=== PATIENT | male | born 1970 | race American Indian/Alaskan Native ===

== ENCOUNTER 2024-07-04 21:26 | Emergency (ER) | payer OTHER, SELFPAY ==
[2024-07-04 21:29] VITALS: BP 112/72
[2024-07-04 21:51] LABS: Hemoglobin 12.1 g/dL (13.0-18.0); Mean Corp Hgb Conc. 31.8 g/dL (33.0-37.0); Mean Corpuscular Hgb 26.9 pg (27.0-31.0); Mean Corpuscular Volume 84.6 fL (80.0-94.0); Mean Platelet Volume 8.8 fL (7.4-10.4); Platelet Count 258 10^3/uL (130-400); Red Blood Cell Count 4.49 10^6/uL (4.70-6.10); Red Cell Dist. Width 13.8 % (11.5-14.5); White Blood Cell Count 9.5 10^3/uL (4.8-10.8)
[2024-07-04 22:05] LABS: ALT (SGPT) 23 U/L (0-50); AST (SGOT) 23 U/L (17-59); Albumin 4.1 g/dl (3.5-5.0); Alkaline Phosphatase 74 U/L (38-126); Blood Urea Nitrogen 10 mg/dl (9-20); Calcium 8.5 mg/dl (8.4-10.2); Carbon Dioxide 28 mmol/L (22-30); Chloride 106 mmol/L (98-107); Glucose 119 mg/dl (70-99); Potassium 3.9 mmol/L (3.5-5.1); Sodium 141 mmol/L (135-145); Total Bilirubin 0.2 mg/dl (0.2-1.3); Total Protein 6.9 g/dl (6.3-8.2); eGFR > 60.00
[2024-07-04 22:11] LABS: Troponin I < 0.012 ng/ml
[2024-07-04 22:32] LABS: % Basophils 0.5 % (0-2); % Eosinophils 3.2 % (0-6); % Immature Granulocytes 0.2 % (0-0.5); % Lymphocytes 52.1 % (20.5-51.1); % Monocytes 6.8 % (1.7-9.3); % Neutrophils 37.2 % (42.2-75.2); Absolute Basophils 0.1 10^3/uL (0-0.2); Absolute Eosinophils 0.3 10^3/uL (0-0.7); Absolute Monocytes 0.7 10^3/uL (0.1-0.6); Absolute Neutrophils 3.5 10^3/uL (1.4-6.5); Nucleated Red Blood Cells % 0 % (-)
[2024-07-04 23:54] VITALS: BP 106/70
[2024-07-04 23:55] VITALS: BP 106/70
[2024-07-04 23:57] VITALS: BMI 26.4
[2024-07-05] VITALS: BP 101/73
--- NOTE | 2024-07-05 00:25 | ED.GENMED ---
History of Present Illness
General
Chief Complaint: Cardiac Symptoms
Source: patient
Exam Limitations: none
Time Seen by Provider: 07/04/24 23:54
History of Present Illness
History of Present Illness:
This is a 53 year old male that comes in with c/o chest pain. States that he had pain in the upper jaw area today with back pain at the left shoulder. States that he then had chest pain. States that this has happened a couple of times during the
day. States that it only last about 1min or less. Denies any pain at this time. Denies any fever, chills, SOB, abd pain, nausea, vomiting, diarrhea, headache, dizziness, urinary burning.
Past History
Past History
ED Past Medical History: Asthma, Cancer (Ampullary Cancer) and Hypothyroidism
ED Past Surgical History: Cholecystectomy and Other (whipple procedure, Hernia, Deviated septum)
Social History
Tobacco: Non-smoker
Alcohol: None
Personal:
Living: with family
Review of Systems
Review of Systems
All Other Systems: ROS reviewed and negative except as documented in HPI and ROS
Constitutional: Reports no symptoms; Denies fever or chills
EENT: Reports no symptoms
Respiratory: Reports no symptoms; Denies cough or trouble breathing
Cardiac: Reports chest pain
ABD/GI: Reports no symptoms; Denies abdominal pain, nausea, vomiting or diarrhea
: Reports no symptoms; Denies dysuria, frequency or urgency
Musculoskeletal: Reports back pain (Left upper back pain)
Skin: Reports no symptoms
Neurological: Reports no symptoms; Denies dizzy or headache
Psychiatric: Reports no symptoms
Phy Exam
General Physical Exam
General Presentation: well appearing and no apparent distress
General age: appears stated age
General Skin: warm and dry
General Habitus: normal
General Mental: alert
General Hydration: appears well hydrated
ENT Exam
ENT Exam: TM's normal, pharynx normal and neck supple
Eye Exam
Eye Exam: EOMI
Cardiovascular Exam
Cardiovascular Exam: regular rate/rhythm, no edema, no murmur and normal peripheral pulses
Pulmonary Exam
Pulmonary Exam: lungs clear, no respiratory distress, no rales, chest non tender, no crackles, no rhonchi, no wheezing and no cough
Gastrointestinal Exam
Gastrointestinal Exam: normal bowel sounds, non tender, soft, no organomegaly, no pulsatile mass and non distended
Musculoskeletal Exam
Musculoskeletal Exam: full ROM and no edema
Skin Exam
Skin Exam: normal color, warm/dry, no rash and no petechia
Psychiatric Exam
Psychiatric Exam: normal mood/affect
Course
Orders/Labs/Results
Orders:
Orders
07/04/24 21:27
ECG [Electrocardiogram (*1)] Urgent
Reason for Study: Other
Other Reason for Exam: jaw and left shoulder pain
07/04/24 21:28
EKG- Treatment ONCE
07/04/24 21:40
Complete Blood Count/With Diff Urgent
Comprehensive Metabolic Panel Urgent
Troponin I Urgent
07/05/24 00:24
Electrocardiogram (*1) Urgent
Reason for Study: Chest Pain
Other Reason for Exam: Repeat with Troponin
EKG- Treatment ONCE
CR Chest - 2 Views Urgent
Comment:
Reason For Exam: Chest pain
07/05/24 00:39
D-Dimer Urgent
Troponin I Urgent
Abnormal Lab Results
07/04/24
21:40
RBC 4.49 L 10^6/uL
(4.70-6.10)
Hgb 12.1 L g/dL
(13.0-18.0)
Hct 38.0 L %
(39.0-52.0)
MCH 26.9 L pg
(27.0-31.0)
MCHC 31.8 L g/dL
(33.0-37.0)
Absolute Lymphs (auto) 5.0 H 10^3/uL
(1.2-3.4)
Absolute Monos (auto) 0.7 H 10^3/uL
(0.1-0.6)
Neutrophils % 37.2 L %
(42.2-75.2)
Lymphocytes % 52.1 H %
(20.5-51.1)
Glucose 119 H mg/dl
(70-99)
07/04/24 21:40
07/04/24 21:40
H/H slightly low. Glucose nonfasting. Troponin <0.012
Second Troponin <0.012, D-dimer 0.31
Vital Signs
Initial and Last Documented VS:
Initial Vital Signs
Temp Pulse Resp BP Pulse Ox
98.0 F 66 18 112/72 100
07/04/24 21:29 07/04/24 21:29 07/04/24 21:29 07/04/24 21:29 07/04/24 21:29
Last Documented Vital Signs
Temp Pulse Resp BP Pulse Ox
98.0 F 58 11 106/70 100
07/04/24 21:29 07/04/24 23:55 07/04/24 23:55 07/04/24 23:55 07/04/24 23:55
MDM/Problems Addressed
Differential Diagnosis Includes:
Coronay syndrome. PE
MDM/Problems Addressed:
This is a 53 year old male that comes in with c/o chest pain, upper jaw pain and shoulder pain. States that this happened a couple of times during the day but only last a min or less.
Will check labs. ECG, chest X-ray.
Repeat ECG: rate 58 Sinus rain, Normal axis. Normal QRS. Negative for ischemia
Back into see patient. Patient is sleeping. Explained that his Second Troponin is normal along with his D-dimer. Patient refused his chest X-ray. Patient to follow up with the family doctor. Return with increased or changing pain, or any other
concerns .
Chronic conditions affecting care:
NA
Acute Exacerbation and/or Progression of Chronic Illness:
NA
*Pulse Oximetry
Patient hypoxic: no
*EKG
Interpreted by ED Provider?: Yes
Heart Rate: 62
Rate: normal
Rhythm: sinus
[place]: normal axis
Interval: normal interval
QRS Pattern: normal QRS
Ischemia: no ischemia
*Pump Servicer Interpretation
Rate: normal
Heart Rate: 60
Rhythm: sinus
*Critical Care Note
Total Time (30-74mins, 75-104mins- exclusive of procedures): Not Applicable
ED Attending Note
-
Portions of this chart may have been created with voice recognition software.� Occasional wrong word or��sound alike� substitutions may have occurred due to the inherent limitations of voice recognition software.
Discharge Plan
Departure
Patient Disposition: Home (Routine Discharge)
Date of Disposition: 07/05/24
Time of Disposition: 01:42
Patient with high blood pressure during this ER visit?: No
Condition: Good
Covid-19: Not Applicable
Discharge Problem:
Chest pain
Instructions: Chest Pain (DC), Chest Pain PCP Follow Up
Prescriptions:
No Action
ondansetron HCl 4 MG tablet
4 mg PO Q8HPRN PRN (Reason: nausea)
prochlorperazine maleate 10 MG tablet
10 mg PO Q8HPRN PRN (Reason: nausea)
omeprazole [Prilosec] 10 MG capsule,delayed release(DR/EC)
10 mg PO DAILY
tamsulosin 0.4 MG capsule
0.4 mg PO .ONCEWEEKLY
cholecalciferol (vitamin D3) 2,000 UNIT tablet
5,000 unit PO .ONCEWEEKLY
levothyroxine 137 MCG capsule
137 mcg PO DAILY
[id number] [Creon] 1 EACH capsule,delayed release(DR/EC)
1 ea PO DAILY
Referrals:
John Kong MD [Family Provider] - Follow up in 2-3 days
Activity Restrictions/Additional Instructions:
As discussed, your blood work is normal. Your both Troponin and your D-dimer. Please follow up with the family doctor in the next 2-3 days for recheck. IF YOU HAVE INCREASED OR CHANGING PAIN, OR YOU HAVE ANY OTHER CONCERNS PLEASE RETURN TO THE
EMERGENCY ROOM.
Interventions
Interventions:
*Risk Screen - Suicide Last Done: 07/04/24 21:29
*General Assessment Last Done: 07/04/24 21:29
*Neglect/Abuse Screening Last Done: 07/04/24 21:29
ED- Fall Risk Assessment Last Done: 07/04/24 21:29
*ED COVID-19 Vaccine History Last Done: 07/04/24 21:29
ED- Pulmonary Assessment Last Done: 07/04/24 23:59
ED- Cardiac Assessment Last Done: 07/04/24 23:59
Discharge Date and Time
Print Language: DJIBOUTIAN
[2024-07-05 01:00] VITALS: BP 93/57
[2024-07-05 01:03] LABS: D-Dimer 0.31 ug/mlFEU (0.00-0.50)
[2024-07-05 01:11] LABS: Troponin I < 0.012 ng/ml
== END 2024-07-05 02:00 | disposition home or self-care (01) ==
LOC: EMR 21:26
PROVIDERS: Clinical Nurse Specialist Family Health; Emergency Medicine; EMERGENCY PHYSICIAN Emergency Medicine; FAMILY PHYSICIAN Family Medicine
DX: R07.89 Other chest pain (principal)
CPT/HCPCS: 99284; 80053; 84484; 85025; 85379; 93005